=== PATIENT | female | born 1970 | race Caucasian/White ===

== ENCOUNTER 2016-12-24 01:44 | Emergency (ER) | payer SELFPAY ==
--- NOTE | 2016-12-24 02:48 | ERPHSYRPT ---
- History of Present Illness Time Seen by Provider: 12/24/16 02:00 Historian: patient Exam Limitations: clinical condition Patient Subjective Stated Complaint: chest pain, back pain, internal bledding, ractal bleeding, vaginal pain and bleeding, flank pain Triage Nursing Assessment: patient brought to ER by ems she was at [facility] complaining of chest pain, states she is from [facility] and that shes up here to get medical care, asked what doctors she was seeing said someone who will give me something. patient is disgruntled and wants somone to treat her now . patient lungs clear diminished, pulses equal bilateral radius, patient has bit simon and bruising up and down arms. eulalion is refusing to provide us history and give us information keeps trying to dose off Physician History: PATIENT WITH HISTORY OF SCHIZOPHRENIA, RECENTLY DIAGNOSED WITH PULMONARY EMBOLISM AT [facility] 12/18/2016, WHILE HOSPITALIZED AND DISCHARGED ON 2016. PATIENT PLACED ON XARELTO AND OXYCODONE FOR PAIN. PATIENT RETURNED TO [facility] EMERGENCY ROOM ON DATE 12/22/16 FOR EVALUATION OF CHEST PAIN AND DISCHARGED AFTER CHEST CT PE PRTOCOL SHOWED NO EVIDENCE OF PULMONARY EMBOLISM BUT FINDINGS CONSISTENT WITH CENTRILOBULAR EMPHYSEMA. SHE THEN WAS EVALUATED AT [facility] EMERGENCY ROOM ON DATE 12/23/2016 FOR CHEST PAIN AND A CHEST CT PE PROTOCOL SCAN SHOWED NO EVIDENCE OF PULMONARY EMBOLISM. WHILE SHE WAS RIDING A BUS ENROUTE TO HER HOME IN [place], SHE WAS LEFT BEHIND AT A [facility] ST[facility] IN [place] IN AND CALLED EMS WITH COMPLAINS OF CHEST PAIN, REQUESTING TRANSFER TO [place]. PATIENT GIVEN 4 [employer]Y [employer] ENROUTE TO THE EMERGENCY ROOM AT [place]. PATIENT COMPLAINS OF CHEST PAIN, REFUSES TO ANSWER ADDITIONAL QUESTIONS OF HER RECENT HOSPITALIZATIONS AN BECAME UNCOOPERATIVE. Timing/Duration: day(s) Activities at Onset: none Quality: sharpness Location: substernal Chest Pain Radiation: no radiation Severity of Pain-Max: moderate Severity of Pain-Current: moderate Modifying Factors: Improves With: change in position Associated Symptoms: hurts to breathe Prior Chest Pain/Cardiac Workup: recently seen/treated, recent hospitalization Nitro Today/Relief: no nitro taken today Aspirin Treatment Today: 81 mg x 2, 81 mg x 4 Allergies/Adverse Reactions: bupropion [From Wellbutrin] Allergy (Verified 12/24/16 02:05) celecoxib [From Celebrex] Allergy (Verified 12/24/16 02:05) divalproex sodium [From Depakote] Allergy (Verified 12/24/16 02:05) quetiapine [From Seroquel] Allergy (Verified 12/24/16 02:05) tramadol [From Ultram] Allergy (Verified 12/24/16 02:05) Hx Tetanus, Diphtheria Vaccination/Date Given: (unknown) - Review of Systems Constitutional: No Fever, No Chills Eyes: No Symptoms Ears, Nose, & Throat: No Symptoms Respiratory: No Symptoms, No Cough, No Dyspnea Cardiac: No Chest Pain, No Edema, No Syncope Abdominal/Gastrointestinal: No Symptoms, No Abdominal Pain, No Nausea, No Vomiting, No Diarrhea Genitourinary Symptoms: No Symptoms, No Dysuria Musculoskeletal: No Symptoms, No Back Pain, No Neck Pain Skin: No Symptoms, No Rash Neurological: No Dizziness, No Focal Weakness, No Sensory Changes Psychological: No Symptoms Endocrine: No Symptoms All Other Systems: Reviewed and Negative - Past Medical History Neurological History: Seizures Cardiac History: Hypertension Respiratory History: Pulmonary Embolism Endocrine Medical History: Diabetes Type II Female Reproductive Disorders: Menstrual Problems, Other - Past Surgical History Past Surgical History: (unknown) - Social History Smoking Status: Current every day smoker - Nursing Vital Signs Temperature: 97.8 F Temperature Source: Oral Pulse Rate: 68 Respiratory Rate: 20 Pain Intensity: 10 - Physical Exam General Appearance: no apparent distress, alert Eye Exam: PERRL/EOMI, eyes nml inspection Ears, Nose, Throat Exam: normal ENT inspection, moist mucous membranes Neck Exam: normal inspection, non-tender, supple, full range of motion Respiratory Exam: normal breath sounds, chest tenderness (PARASTERAL TENDERNESS T-2 TO T-5), lungs clear, No respiratory distress Cardiovascular Exam: regular rate/rhythm, normal heart sounds Gastrointestinal/Abdomen Exam: soft, normal bowel sounds, other (NONTENDER), No tenderness, No mass Back Exam: normal inspection, No CVA tenderness, No vertebral tenderness Extremity Exam: normal inspection, normal range of motion Neurologic Exam: alert, oriented x 3, cooperative, normal mood/affect, sensation nml, No motor deficits Skin Exam: normal color, warm, dry SpO2 Interpretation: normal SpO2: 95 Oxygen Delivery: Room Air - Course EKG Interpreted by Me: RATE, Sinus Rhythm, Non-specific ST Changes - Radiology Exams Chest X-ray Interpretation: Interpreted by me (RIGHT INFRAHILAR INFILTRATE) Ordered Tests: Active Orders 24 hr Category Date Time Status Telegraph Office Telephone Clerk STAT Care 12/24/16 02:35 Active EKG-ER Only STAT Care 12/24/16 02:35 Active EKG-ER Only STAT Care 12/24/16 05:19 Active Saline Lock STAT Care 12/24/16 05:12 Active CHEST 2 VIEWS (PA AND LAT) Stat Exams 12/24/16 02:38 Taken BMP Stat Lab 12/24/16 02:30 Completed CBC W DIFF Stat Lab 12/24/16 02:30 Completed PROTIME WITH INR Stat Lab 12/24/16 02:30 Completed TROPONIN Q3H Lab 12/24/16 02:30 Completed TROPONIN Q3H Lab 12/24/16 05:40 Completed TROPONIN Q3H Lab 12/24/16 08:45 Ordered TROPONIN Q3H Lab 12/24/16 11:45 Ordered TROPONIN Q3H Lab 12/24/16 14:45 Ordered Medication Summary Discontinued Medications Generic Name Dose Route Start Last Admin Trade Name Freq PRN Reason Stop Dose Admin Hydrogen Peroxide Confirm 12/24/16 05:48 Peroxide 3% Administered 12/24/16 05:49 Dose 237 ml .ROUTE .STK-MED ONE Ceftriaxone Sodium/Dextrose 50 mls @ 100 mls/hr 12/24/16 05:11 12/24/16 05:42 Rocephin 1 Gm-D5w 50 Ml Bag IV 12/24/16 05:40 Not Given STAT ONE Ceftriaxone Sodium/Dextrose Confirm 12/24/16 05:14 Rocephin 1 Gm-D5w 50 Ml Bag Administered 12/24/16 05:15 Dose 50 mls @ ud IV .STK-MED ONE Lab/Rad Data: Laboratory Result Diagrams 12/24/16 02:30 12/24/16 02:30 Laboratory Results 12/24/16 12/24/16 12/24/16 Range/Units 05:40 02:30 02:30 WBC (4.0-10.5) K/mm3 RBC (4.1-5.4) M/mm3 Hgb (12.0-16.0) gm/dl Hct (35-47) % MCV (78-100) fl MCH (26-32) pg MCHC (32-36) g/dl RDW (11.5-14.0) % Plt Count (150-450) K/mm3 MPV (6-9.5) fl Gran % (36.0-66.0) % Lymphocytes % (24.0-44.0) % Monocytes % (0.0-12.0) % Eosinophils % (0.00-5.0) % Basophils % (0.0-0.4) % Basophils # (0-0.4) INR 1.08 (0.8-3.0) Sodium (136-145) mEq/L Potassium (3.5-5.1) mEq/L Chloride (98-107) mEq/L Carbon Dioxide (21-32) mEq/L Anion Gap (5-15) MEQ/L BUN (9-20) mg/dL Creatinine (0.55-1.30) mg/dl Estimated GFR ML/MIN Glucose (70-110) MG/DL Calcium (8.5-10.1) mg/dL Troponin I < 0.017 < 0.017 (0.000-0.056) ng/ml 12/24/16 12/24/16 Range/Units 02:30 02:30 WBC 6.8 (4.0-10.5) K/mm3 RBC 5.32 (4.1-5.4) M/mm3 Hgb 16.0 (12.0-16.0) gm/dl Hct 48.1 H (35-47) % MCV 90.4 (78-100) fl MCH 30.1 (26-32) pg MCHC 33.3 (32-36) g/dl RDW 14.6 H (11.5-14.0) % Plt Count 206 (150-450) K/mm3 MPV 11.1 H (6-9.5) fl Gran % 52.9 (36.0-66.0) % Lymphocytes % 31.5 (24.0-44.0) % Monocytes % 13.1 H (0.0-12.0) % Eosinophils % 2.1 (0.00-5.0) % Basophils % 0.4 (0.0-0.4) % Basophils # 0.03 (0-0.4) INR (0.8-3.0) Sodium 139 (136-145) mEq/L Potassium 3.6 (3.5-5.1) mEq/L Chloride 104 (98-107) mEq/L Carbon Dioxide 24.5 (21-32) mEq/L Anion Gap 13.7 (5-15) MEQ/L BUN 9 (9-20) mg/dL Creatinine 0.82 (0.55-1.30) mg/dl Estimated GFR > 60 ML/MIN Glucose 105 (70-110) MG/DL Calcium 9.3 (8.5-10.1) mg/dL Troponin I (0.000-0.056) ng/ml - Progress Progress: re-examined Progress Note: 12/24/16 05:02 PATIENT GIVEN ROCEPHIN 1 GM IVPB, PATIENT SLEEPING IN ROOM PAST 3 HOURS, REPEAT TROPONIN AT 0520 NEGATIVE 12/24/16 06:20 PATIENT REFUSES REPEAT EKG AND IV SALINE LOCK DISCHARGE PLANNING WITH HEAD NURSE DISCUSSED WITH PATIENT CONCERNING MULTIPLE EMERGENCY ROOM VISITS, REPEPITIVE CHEST CT SCANS Counseled pt/family regarding: lab results, diagnosis, need for follow-up, rad results - Departure Time of Disposition: 06:20 Departure Disposition: Home Clinical Impression: PLEURISY, BRONCHITIS Condition: Stable Critical Care Time: No Referrals: DOCTOR,NO FAMILY [Primary Care Provider] - Additional Instructions: CONTINUE ALL CURRENT MEDICATIONS. ANTIBIOTIC CEFTIN 250MG TWICE DAILY FOR 10 DAYS. CONSULT YOUR FAMILY PHYSICICAN TOMORROW FOR FOLLOWUP. Prescriptions: Cefuroxime Axetil [Cefuroxime] 250 mg PO BID #20 tablet
[2016-12-24 02:54] LABS: BASOPHIL % 0.4 % (0.0-0.4); Eosinophil % 2.1 % (0.00-5.0); Granulocytes % 52.9 % (36.0-66.0); Lymphocytes % 31.5 % (24.0-44.0); Mean Cell Volume 90.4 fl (78-100); Mean Corpuscular Hemoglobin 30.1 pg (26-32); Mean Platelet Volume 11.1 fl (6-9.5); Monocytes % 13.1 % (0.0-12.0); Platelet Count 206 K/mm3 (150-450); Red Blood Count 5.32 M/mm3 (4.1-5.4); Red Cell Distribution Width 14.6 % (11.5-14.0); White Blood Count 6.8 K/mm3 (4.0-10.5)
[2016-12-24 02:55] LABS: INR 1.08 (0.8-3.0); PROTIME 12.1 SECONDS (9.95-12.35)
[2016-12-24 03:04] LABS: ANION GAP 13.7 MEQ/L (5-15); BLOOD UREA NITROGEN 9 mg/dL (9-20); CHLORIDE 104 mEq/L (98-107); Carbon Dioxide 24.5 mEq/L (21-32); Glucose 105 MG/DL (70-110); Potassium 3.6 mEq/L (3.5-5.1); SODIUM 139 mEq/L (136-145)
[2016-12-24] MEDS ORDERED: ROCEPHIN 1 Gm-D5w 50 ml Bag** 50 ML IV ONE (05:11)
[2016-12-24] MEDS ORDERED: ROCEPHIN 1 GM IV ONE (05:14)
[2016-12-24] MEDS ORDERED: D5W IV ONE (05:14)
[2016-12-24] MEDS ORDERED: PEROXIDE 3% ONE (05:48)
[2016-12-24 05:58] VITALS: BP 89/52
[2016-12-24 06:25] VITALS: PULSE 68; O2SAT 95
--- NOTE | 2016-12-24 08:59 | XRAY ---
Indication: Chest pain and dyspnea. Comparison: None PA/lateral chest demonstrates subtle right base infiltrate versus atelectasis and a few scattered calcified granulomas. Remaining heart, lungs, and bony thorax normal.
== END 2016-12-24 06:31 | disposition home or self-care (01) ==
LOC: ED 01:44
DX: R09.1 Pleurisy (principal); J20.9 Acute bronchitis, unspecified; R07.9 Chest pain, unspecified; M54.9 Dorsalgia, unspecified; R10.9 Unspecified abdominal pain; Z86.718 Personal history of other venous thrombosis and embolism; E11.9 Type 2 diabetes mellitus without complications; Z79.899 Other long term (current) drug therapy; Z79.01 Long term (current) use of anticoagulants
CPT/HCPCS: 36415; 71020; 80048; 84484; 85025; 85610; 93005; 93041; 99282; 99284; J0696; A9270-GY